=== PATIENT | male | born 1960 | race Caucasian/White ===

== ENCOUNTER → 2017-11-27 16:53 | Outpatient (CLI) | payer OTHER, MEDICAID, SELFPAY ==
[2017-11-27 18:19] LABS: Add Manual Diff / Slide Review NO; Basophils Percent Auto 1.3 % (0-2); Eosinophils Percent Auto 3.7 % (2-4); Hematocrit 41.9 % (41-53); Hemoglobin 15.1 g/dL (13.5-17.5); Lymphocytes Percent Auto 24.9 % (25-40); Mean Corpuscular HGB Conc 36.1 % (30-36); Mean Corpuscular Hemoglobin 32.3 PG (26-34); Mean Corpuscular Volume 89.6 fL (80-100); Monocytes Percent Auto 7.4 % (3-14); Neutrophils Absolute Auto 5800 /uL (3000-5900); Neutrophils Percent Auto 62.7 % (50-75); Platelet Count 213 X10^3/uL (150-400); Red Blood Cell Count 4.68 X10^6/uL (4.5-5.9); Red Cell Distribution Width 12.6 % (11.6-14.8); White Blood Cell Count 9.2 X10^3/uL (4.5-11.0)
[2017-11-27 18:26] LABS: Alanine Aminotransferase 71 IU/L (21-72); Albumin 4.5 g/dL (3.5-5.0); Albumin Globulin Ratio 1.8 (1.0-2.8); Alkaline Phosphatase 53 U/L (38-126); Aspartate Aminotransferase 45 IU/L (17-59); Bilirubin Total 0.6 mg/dL (0.2-1.3); Blood Urea Nitrogen 12 mg/dL (9-20); Calcium 9.5 mg/dL (8.4-10.2); Carbon Dioxide 30 mmol/L (22-32); Chloride 102 mmol/L (98-107); Estimated Glomerular Filt Rate > 60.0 mL/min (>60); Globulin 2.5 g/dL (1.7-4.1); Glucose 79 mg/dL (70-100); HEMOLYSIS < 15 (0-50); Potassium 4.2 mmol/L (3.4-5.1); Sodium 142 mmol/L (137-145)
[2017-11-27 18:38] LABS: Erythrocyte Sedimentation Rate 6 MM/HR (0-15)
== END ==
PROVIDERS: Family Provider Family Medicine; PCP Family Medicine; Visit Provider Family Medicine
DX: R59.1 Generalized enlarged lymph nodes (principal)
CPT/HCPCS: 36415; 80053; 85025; 85651

== ENCOUNTER → 2018-04-19 11:34 | Outpatient (CLI) | payer OTHER, MEDICAID, SELFPAY ==
[2018-04-19 13:35] LABS: Cholesterol 194 mg/dL (140-199); HDL Cholesterol 35 mg/dL (40-60)
[2018-04-19 13:51] LABS: Triglycerides 403 mg/dL (35-150)
== END ==
PROVIDERS: PCP Student in an Organized Health Care Education/Training Program; Visit Provider Student in an Organized Health Care Education/Training Program
DX: E55.9 Vitamin D deficiency, unspecified (principal); Z13.220 Encounter for screening for lipoid disorders
CPT/HCPCS: 36415; 80061; 82306

== ENCOUNTER → 2018-09-14 13:39 | Outpatient (CLI) | payer OTHER, MEDICAID, SELFPAY ==
[2018-09-14 16:16] LABS: Cholesterol 172 mg/dL (140-199); HDL Cholesterol 38 mg/dL (40-60); LDL Cholesterol Calculated 99 mg/dL (<100); Triglycerides 174 mg/dL (35-150)
== END ==
PROVIDERS: PCP Student in an Organized Health Care Education/Training Program; Visit Provider Student in an Organized Health Care Education/Training Program
DX: E78.1 Pure hyperglyceridemia (principal)
CPT/HCPCS: 36415; 80061

== ENCOUNTER → 2021-05-20 10:02 | Outpatient (CLI) | payer OTHER, MEDICAID, SELFPAY ==
[2021-05-20 13:47] LABS: BUN Creatinine Ratio 18.1 (6-22); Blood Urea Nitrogen 13 mg/dL (9-20); Calcium 9.5 mg/dL (8.4-10.2); Carbon Dioxide 28 mmol/L (22-32); Chloride 103 mmol/L (98-107); Estimated Glomerular Filt Rate > 60.0 mL/min (>60); Glucose 95 mg/dL (70-100); HEMOLYSIS < 15 (0-50); Potassium 4.5 mmol/L (3.4-5.1); Sodium 141 mmol/L (137-145)
[2021-05-20 14:08] LABS: Prostate Specific Antigen Scrn 3.12 ng/mL (0.1-4.0)
[2021-05-20 14:39] LABS: Vitamin D 25 Hydroxy (D3) 29.9 ng/mL (30.0-100.0)
== END ==
PROVIDERS: PCP Student in an Organized Health Care Education/Training Program; Referring Provider Student in an Organized Health Care Education/Training Program; Visit Provider Student in an Organized Health Care Education/Training Program
DX: I10 Essential (primary) hypertension (principal); E55.9 Vitamin D deficiency, unspecified; Z12.5 Encounter for screening for malignant neoplasm of prostate
CPT/HCPCS: 36415; 80048; 82306; G0103

== ENCOUNTER → 2022-08-01 08:39 | Outpatient (CLI) | payer OTHER, MEDICAID, SELFPAY ==
--- NOTE | 2022-08-01 08:41 | DI.US.S_ITS ---
PROCEDURE: US SOFT TISSUE HEAD AND NECK INDICATIONS: SOFT TISSUE MASS AT LEFT SUBMANDIBULAR TECHNIQUE: Real-time scanning was performed of the neck region of interest, with image documentation. COMPARISON: None. FINDINGS: Anechoic fluid collection is seen in left submandibular space and measures 0.7 x 0.4 x 1.3 cm in size. No internal vascularity is noted. No solid appearing mass is seen. 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 Clinical correlation and follow-up is recommended. CT of neck soft tissue with contrast can also be done for further evaluation of this area. Dictated by: Ger Cabello M.D. on 08/01/2022 at 10:53 Approved by: Ger Cabello M.D. on 08/01/2022 at 10:55
--- NOTE | 2022-08-01 08:41 | DI.RAD.S_ITS ---
PROCEDURE: XR FOOT RT MIN 3V INDICATIONS: Great toe pain. Unusual occupational stressors on that area TECHNIQUE: 3 views of the foot were acquired. COMPARISON: [facility], , FOOT 3V LEFT, 12/27/2014, 12:04. FINDINGS: Bones: Osteoarthritic changes are noted throughout right foot most notably at 1st MTP joint. No fractures or dislocations. No suspicious bony lesions. Soft tissues: Mild soft tissue swelling over medial aspect of 1st MTP joint is seen. No tibiotalar joint effusion. Achilles tendon appears normal. IMPRESSION: Osteoarthritis throughout right foot most notably at 1st MTP joint. No acute fracture or dislocation. Mild medial right great toe soft tissue swelling. Dictated by: Ger Cabello M.D. on 08/01/2022 at 10:58 Approved by: Ger Cabello M.D. on 08/01/2022 at 10:59
[2022-08-01 10:54] LABS: Alanine Aminotransferase 28 IU/L (<50); Albumin 4.4 g/dL (3.5-5.0); Albumin Globulin Ratio 1.6 (1.0-2.8); Alkaline Phosphatase 59 U/L (38-126); Aspartate Aminotransferase 34 IU/L (17-59); BUN Creatinine Ratio 15.5 (6-22); Bilirubin Total 0.5 mg/dL (0.2-1.3); Blood Urea Nitrogen 11 mg/dL (9-20); C-Reactive Protein Quant < 0.5 mg/dL (<1.0); Calcium 8.6 mg/dL (8.4-10.2); Carbon Dioxide 26 mmol/L (22-32); Chloride 105 mmol/L (98-107); Cholesterol 169 mg/dL (140-199); Estimated Glomerular Filt Rate > 60 mL/min (>60); Globulin 2.7 g/dL (1.7-4.1); Glucose 100 mg/dL (80-110); HDL Cholesterol 32 mg/dL (40-60); HEMOLYSIS < 15 (0-50); LDL Cholesterol Calculated 66 mg/dL (<100); Potassium 4.3 mmol/L (3.4-5.1); Sodium 139 mmol/L (137-145); Total Protein 7.1 g/dL (6.3-8.2); Triglycerides 353 mg/dL (35-150)
[2022-08-01 11:07] LABS: Vitamin D 25 Hydroxy (D3) 19.8 ng/mL (30.0-100.0)
[2022-08-01 11:17] LABS: Prostate Specific Antigen Scrn 2.93 ng/mL (0.1-4.0)
[2022-08-01 11:19] LABS: TSH w/ Reflex to FT4 1.67 uIU/mL (0.47-4.68)
[2022-08-01 11:36] LABS: Vitamin B12 293 pg/mL (239-931)
== END ==
PROVIDERS: PCP Student in an Organized Health Care Education/Training Program; Referring Provider Student in an Organized Health Care Education/Training Program; Visit Provider Student in an Organized Health Care Education/Training Program
DX: M27.8 Other specified diseases of jaws (principal); M19.071 Primary osteoarthritis, right ankle and foot; M79.674 Pain in right toe(s); M79.89 Other specified soft tissue disorders; E55.9 Vitamin D deficiency, unspecified; F10.20 Alcohol dependence, uncomplicated; I10 Essential (primary) hypertension; Z12.5 Encounter for screening for malignant neoplasm of prostate; Z13.220 Encounter for screening for lipoid disorders
CPT/HCPCS: 36415; 73630; 76536; 80053; 80061; 82306; 82607; 84443; 86140; G0103

== ENCOUNTER → 2023-10-06 09:32 | Outpatient (CLI) | payer OTHER, MEDICAID, SELFPAY ==
[2023-10-06 10:21] LABS: Add Manual Diff / Slide Review NO; Basophils Absolute Auto 0 /uL (0-100); Basophils Percent Auto 0.7 % (0-2); Eosinophils Absolute Auto 300 /uL (0-450); Eosinophils Percent Auto 5.2 % (2-4); Hematocrit 46.5 % (41-53); Hemoglobin 16.2 g/dL (13.5-17.5); Lymphocytes Absolute Auto 1700 /uL (1100-4500); Lymphocytes Percent Auto 28.2 % (25-40); Mean Corpuscular HGB Conc 34.8 % (30-36); Mean Corpuscular Hemoglobin 31.8 PG (26-34); Mean Corpuscular Volume 91.3 fL (80-100); Monocytes Absolute Auto 400 /uL (0-900); Monocytes Percent Auto 6.9 % (3-14); Neutrophils Absolute Auto 3600 /uL (1500-7000); Platelet Count 209 X10^3/uL (150-400); Red Blood Cell Count 5.09 X10^6/uL (4.5-5.9); Red Cell Distribution Width 12.4 % (11.6-14.8); White Blood Cell Count 6.1 X10^3/uL (4.5-11.0)
[2023-10-06 11:20] LABS: Alanine Aminotransferase 39 IU/L (<50); Albumin 4.5 g/dL (3.5-5.0); Albumin Globulin Ratio 1.7 (1.0-2.8); Alkaline Phosphatase 54 U/L (38-126); Aspartate Aminotransferase 47 IU/L (17-59); BUN Creatinine Ratio 15.7 (6-22); Blood Urea Nitrogen 11 mg/dL (9-20); Calcium 8.9 mg/dL (8.4-10.2); Carbon Dioxide 23 mmol/L (22-32); Chloride 108 mmol/L (98-107); Cholesterol 187 mg/dL (140-199); Estimated Glomerular Filt Rate > 60 mL/min (>60); Globulin 2.6 g/dL (1.7-4.1); Glucose 113 mg/dL (80-110); HDL Cholesterol 42 mg/dL (40-60); HEMOLYSIS < 15 (0-50); LDL Cholesterol Calculated 110 mg/dL (<100); Potassium 4.1 mmol/L (3.4-5.1); Sodium 139 mmol/L (137-145); Total Protein 7.1 g/dL (6.3-8.2); Triglycerides 175 mg/dL (35-150)
[2023-10-06 11:26] LABS: Creatinine Urine Random 126.19 mg/dL
[2023-10-06 11:27] LABS: Vitamin D 25 Hydroxy (D3) 32.5 ng/mL (30.0-100.0)
[2023-10-06 11:40] LABS: TSH w/ Reflex to FT4 1.95 uIU/mL (0.47-4.68)
[2023-10-06 11:54] LABS: Microalbumin Urine Random 21.8 mg/dL (0-1.6)
[2023-10-06 12:07] LABS: HIV 1 & 2 Ab/Ag 4th Gen Combo NEGATIVE (NEGATIVE); Hep C Virus Ab w/Reflex Quant NEGATIVE s/c (NEGATIVE)
== END ==
PROVIDERS: PCP Family Medicine; Referring Provider Family Medicine; Visit Provider Family Medicine
DX: I10 Essential (primary) hypertension (principal); D69.6 Thrombocytopenia, unspecified; K76.0 Fatty (change of) liver, not elsewhere classified; Z13.220 Encounter for screening for lipoid disorders; E55.9 Vitamin D deficiency, unspecified; R22.0 Localized swelling, mass and lump, head; Z11.4 Encounter for screening for human immunodeficiency virus [HIV]; Z11.59 Encounter for screening for other viral diseases
CPT/HCPCS: 36415; 80053; 80061; 82043; 82306; 82570; 84443; 85025; 86803; 87389

== ENCOUNTER → 2024-10-14 08:42 | Outpatient (CLI) | payer MEDICAID, SELFPAY ==
[2024-10-14 09:00] LABS: Hematocrit 46.4 % (41-53); Hemoglobin 16.4 g/dL (13.5-17.5); Mean Corpuscular HGB Conc 35.3 % (30-36); Mean Corpuscular Hemoglobin 32.5 PG (26-34); Mean Corpuscular Volume 92.1 fL (80-100); Platelet Count 189 X10^3/uL (150-400)
[2024-10-14 09:20] LABS: Alanine Aminotransferase 43 IU/L (<50); Albumin 4.9 g/dL (3.5-5.0); Albumin Globulin Ratio 2.0 (1.0-2.8); Alkaline Phosphatase 60 U/L (38-126); Blood Urea Nitrogen 9 mg/dL (9-20); Calcium 9.1 mg/dL (8.4-10.2); Carbon Dioxide 24 mmol/L (22-32); Chloride 104 mmol/L (98-107); Cholesterol 114 mg/dL (140-199); Estimated Glomerular Filt Rate > 60 mL/min (>60); Globulin 2.4 g/dL (1.7-4.1); Glucose 109 mg/dL (70-99); HDL Cholesterol 47 mg/dL (40-60); HEMOLYSIS < 15 (0-50); Potassium 4.0 mmol/L (3.4-5.1); Sodium 138 mmol/L (137-145); Total Protein 7.3 g/dL (6.3-8.2); Triglycerides 104 mg/dL (35-150)
[2024-10-14 09:32] LABS: Vitamin D 25 Hydroxy (D3) 47.6 ng/mL (30.0-100.0)
[2024-10-14 10:17] LABS: Microalbumi Creatinin Ratio Ur 221.0 ug/mg CR (<30)
== END ==
PROVIDERS: PCP Family Medicine; Referring Provider Family Medicine; Visit Provider Family Medicine
DX: E78.5 Hyperlipidemia, unspecified (principal); Z12.5 Encounter for screening for malignant neoplasm of prostate; R80.9 Proteinuria, unspecified; F10.20 Alcohol dependence, uncomplicated; E55.9 Vitamin D deficiency, unspecified; D69.6 Thrombocytopenia, unspecified; I10 Essential (primary) hypertension; K76.0 Fatty (change of) liver, not elsewhere classified
CPT/HCPCS: 36415; 80053; 80061; 82043; 82306; 82570; 85027; G0103

== ENCOUNTER → 2025-02-02 11:14 | Outpatient (CLI) | payer OTHER, SELFPAY ==
--- NOTE | 2025-02-02 11:16 | DI.RAD.S_ITS ---
PROCEDURE: XR HAND RT MIN 3V INDICATIONS: arthritis TECHNIQUE: 3 views of the hand(s) acquired. COMPARISON: None. FINDINGS/IMPRESSION: Severe degenerative changes at the 1st carpometacarpal joint. Additional multifocal degenerative changes of the interphalangeal joints, most pronounced and moderate at the 2nd distal interphalangeal joint. Small lucency at the scaphoid waist, nonspecific. No acute fracture or dislocation. Dictated by: Rebecca Coulter M.D. on 02/02/2025 at 16:24 Approved by: Rebecca Coulter M.D. on 02/02/2025 at 16:26
--- NOTE | 2025-02-02 11:16 | DI.RAD.S_ITS ---
PROCEDURE: XR HAND LT MIN 3V INDICATIONS: arthritis TECHNIQUE: 3 views of the hand(s) acquired. COMPARISON: [facility], CR, XR HAND RT MIN 3V, 02/02/2025, 11:26. FINDINGS/IMPRESSION: Severe degenerative changes of the 1st carpal metacarpal joint. Flexion deformity at the 4th proximal interphalangeal joint. Multifocal mild degenerative changes of the interphalangeal joint. No acute fracture or dislocation. Dictated by: Rebecca Coulter M.D. on 02/02/2025 at 16:26 Approved by: Rebecca Coulter M.D. on 02/02/2025 at 16:28
[2025-02-06 08:36] LABS: ANA Screen, IFA Negative (.)
== END ==
PROVIDERS: PCP Family Medicine; Referring Provider Family Medicine; Visit Provider Family Medicine
DX: Z12.5 Encounter for screening for malignant neoplasm of prostate (principal); M79.641 Pain in right hand; M79.642 Pain in left hand; R21 Rash and other nonspecific skin eruption
CPT/HCPCS: 36415; 73130; 85651; 86038; 86140; 86200; 86430; G0103